=== PATIENT | male | born 1990 | race Caucasian/White ===

== ENCOUNTER 2021-09-10 08:31 | Emergency (ER) | payer SELFPAY ==
[2021-09-10 08:44] VITALS: BP 154/89; PULSE 88; RESP 20; TEMP 36.8; O2SAT 100
--- NOTE | 2021-09-10 09:18 | ED.URI ---
HPI - URI/Sore Throat General Chief Complaint: Upper Respiratory Infection Stated Complaint: Sore Throat Time Seen by Provider: 09/10/21 09:12 Source: patient and RN notes reviewed Mode of arrival: ambulatory Limitations: no limitations History of Present Illness HPI Narrative: Patient presents today complaining of a 2-day history of sore throat and swelling, headache, tenderness to the neck, and fatigue. Currently rates his sore throat 2/10, which increases with swallowing. He has been taking Tylenol with mild relief of the headache. He has had 1 COVID-19 vaccine. Smokes half pack per day. Denies any sick contacts. MD elicited complaint: sore throat Related Data Home Medications Medication Instructions Recorded Confirmed No Home Medications 09/10/21 09/10/21 Allergies Allergy/AdvReac Type Severity Reaction Status Date / Time No Known Allergies Allergy Verified 09/10/21 08:55 Review of Systems Review of Systems: CONSTITUTIONAL: Denies body aches, fever, chills, or sweats.+ Fatigue EYES: Denies visual changes, redness, or discharge. ENT: Denies rhinorrhea, congestion, or otalgia.+ Sore throat CARDIOVASCULAR: Denies chest pain, palpitations, or edema. RESPIRATORY: Denies cough or dyspnea. GASTROINTESTINAL: Denies abdominal pain, nausea, vomiting, or diarrhea. GENITOURINARY: Denies dysuria or hematuria. SKIN: Denies rash, itching, or wounds. MUSCULOSKELETAL: Denies back pain, joint pain, or myalgia. NEUROLOGIC: Denies numbness, tingling, or weakness.+ Headache PSYCH: Denies depression or anxiety. [facility] Social History Social History (Updated 09/10/21 @ 09:20 by Fozia Doss, [facility], ) Smoking packs per day: 0.5 Smoking cigarettes per day: 10.0 Years smoked: 12 Smoking pack-years: 6.00 Smoking status: Current every day smoker Comments At time of signature, I have reviewed and agree with nursing past medical, surgical, social and family history unless otherwise noted. Please see nursing chart for further information. There is no relevant family history pertinent to the presenting complaint Exam Narrative: GENERAL: Well-appearing, well-nourished, and in no acute distress. HEAD: Normocephalic, atraumatic. EYES: EOMI. No redness or drainage. Conjunctivae normal. ENT: Mucous membranes pink and moist. Nares clear. No rhinorrhea. TMs normal bilaterally. Throat mildly erythematous and edematous with white exudate. Tonsils 2+. Uvula midline. NECK: Normal AROM. Supple. Tender bilateral anterior lymphadenopathy. CHEST: No respiratory distress. Clear to auscultation. HEART: Regular rate and rhythm. No murmur appreciated. Normal peripheral pulses. EXTREMITIES: Normal range of motion. No edema. SKIN: Warm, dry, no rash. Capillary refill normal. Normal skin turgor. NEURO: No focal deficits. Alert and oriented x3. Gait steady. PSYCH: Normal affect. No signs of depression or anxiety. Course Vital Signs Vital signs: Vital Signs Temperature 98.2 F 09/10/21 08:44 Pulse Rate 88 09/10/21 08:44 Respiratory Rate 20 09/10/21 08:44 Blood Pressure 154/89 H 09/10/21 08:44 Pulse Oximetry 100 09/10/21 08:44 Temperature 99.0 F 09/10/21 08:56 Pulse Rate 82 09/10/21 08:56 Respiratory Rate 16 09/10/21 08:56 Blood Pressure 129/78 09/10/21 08:56 Pulse Oximetry 100 09/10/21 08:56 Reviewed. Pt has been instructed to follow up with his PCP regarding his elevated blood pressure today. MDM - URI/Sore Throat Differential Diagnosis Differential diagnosis: Likely upper respiratory infection, otitis media, viral infection, pharyngitis and other (Strep throat) Lab Data Attestation: I reviewed the patient's lab results. Labs: Strep Screen Presumptive Negative *(Reference Range: Negative)* Critical Care Time Critical Care Time Critical Care Time: No Discharge Plan Discharge Clinical Impression: Acute viral phary
== END 2021-09-10 09:25 | disposition home or self-care (01) ==
PROVIDERS: Emergency Provider Nurse Practitioner
DX: J02.9 Acute pharyngitis, unspecified (principal); F17.210 Nicotine dependence, cigarettes, uncomplicated
CPT/HCPCS: 87081; 87880; 99213; G0463

== ENCOUNTER 2022-07-08 11:55 | Emergency (ER) | payer OTHER, SELFPAY ==
[2022-07-08 12:00] VITALS: BP 161/85; PULSE 85; RESP 16; TEMP 36.3; O2SAT 100
--- NOTE | 2022-07-08 12:00 | ED.EAR ---
HPI - Ear Problem General Chief complaint: Ear Stated complaint: left ear pain Time Seen by Provider: 07/08/22 12:00 Source: patient and RN notes reviewed History of Present Illness HPI Narrative: Patient is a 31-year-old male who presents the urgent care with complaints of left otalgia since last night. Patient states that he took Tylenol for his ear pain. Denies of any other upper respiratory complaints. Denies of any fever. No other acute complaints. No acute distress noted. Patient read the plan of care. Some parts of this dictation were generated by voice recognition software and may contain typographical and/or grammatical inaccuracies. Related Data Home Medications Medication Instructions Recorded Confirmed No Home Medications 09/10/21 09/10/21 Allergies Allergy/AdvReac Type Severity Reaction Status Date / Time No Known Allergies Allergy Verified 07/08/22 12:07 Review of Systems Review of Systems: CONSTITUTIONAL: Denies fever, chills, or sweats. EYES: Denies visual changes, redness, or discharge. ENT: Denies rhinorrhea, congestion, sore throat. Reports of left otalgia CARDIOVASCULAR: Denies chest pain, palpitations, or edema. RESPIRATORY: Denies cough or dyspnea. GASTROINTESTINAL: Denies abdominal pain, nausea, vomiting, or diarrhea. GENITOURINARY: Denies dysuria or hematuria. SKIN: Denies rash or itching. MUSCULOSKELETAL: Denies back pain, joint pain, or myalgia. NEUROLOGIC: Denies headache, numbness, or weakness. All other systems reviewed are negative, except as documented in HPI. [facility] Social History Social History (Updated 09/10/21 @ 09:20 by Fozia Doss, [facility]) Smoking packs per day: 0.5 Smoking cigarettes per day: 10.0 Years smoked: 12 Smoking pack-years: 6.00 Smoking status: Current every day smoker Exam Narrative: GENERAL: This is a well-nourished, well-developed patient, in no apparent distress. HEAD: normocephalic, atraumatic. EYES: PERRL. Sclera clear/white. Vision is grossly intact. EARS: External ears normal, auditory canals clear and without drainage, mild left effusion without otitis. Right TM normal without perforation. Hearing grossly intact. NOSE: External nose normal with no obvious nasal discharge, nares without redness, no rhinorrhea. THROAT: Mucous membranes moist, posterior pharynx clear. Mild postnasal drainage NECK: Neck supple, non-tender without lymphadenopathy, masses or thyromegaly. CARDIOVASCULAR: Regular rate and rhythm without murmurs, gallops, or rubs. RESPIRATORY: Clear to auscultation. Breath sounds equal bilaterally. No wheezes, rales, or rhonchi. SKIN: warm, intact with no suspicious lesions or rash, good texture and turgor. NEURO: awake, alert, and oriented to person, place and time. There were no obvious focal neurologic abnormalities. EXTREMITIES: No clubbing, cyanosis, or edema. Course Course Level of Care: Express Care Visit Vital Signs Vital signs: Vital Signs Temperature 97.4 F L 07/08/22 12:00 Pulse Rate 85 07/08/22 12:00 Respiratory Rate 16 07/08/22 12:00 Blood Pressure 161/85 H 07/08/22 12:00 Pulse Oximetry 100 07/08/22 12:00 Oxygen Delivery Room Air 07/08/22 12:00 Temperature 97.4 F L 07/08/22 12:00 Pulse Rate 85 07/08/22 12:00 Respiratory Rate 16 07/08/22 12:00 Blood Pressure 161/85 H 07/08/22 12:00 Pulse Oximetry 100 07/08/22 12:00 Oxygen Delivery Room Air 07/08/22 12:00 Reviewed-patient is informed that they may have pre-hypertension or hypertension based on a blood pressure reading in the department. I recommend the patient call the primary care provider listed on their discharge instructions or a physician of their choice this week to arrange follow-up for further evaluation of possible pre-hypertension or hypertension. Medical Decision Making MDM Narrative Medical decision making narrative: Advised patient take a daily antihistamine such as Claritin or Zyrtec. Use [place]
== END 2022-07-08 12:13 | disposition home or self-care (01) ==
PROVIDERS: Emergency Provider Nurse Practitioner Family
DX: H92.02 Otalgia, left ear (principal); F17.210 Nicotine dependence, cigarettes, uncomplicated
CPT/HCPCS: 99211; G0463

== ENCOUNTER 2023-02-10 13:11 | Emergency (ER) | payer OTHER, SELFPAY ==
[2023-02-10 13:16] VITALS: BP 127/88; PULSE 119; RESP 20; TEMP 37.4; O2SAT 98
--- NOTE | 2023-02-10 13:39 | ED.URI ---
HPI - URI/Sore Throat General Chief Complaint: Upper Respiratory Infection Stated Complaint: cold/flu Source: patient and RN notes reviewed History of Present Illness HPI Narrative: 32 yo M presents to urgent care with at side. Pt states he woke up Friday morning feeling like crap. Pt reports fatigue, productive cough, chest pain with coughing, and a VASQUEZ. Pt states he has had a fever, highest being 102 F, yesterday. Pt reports a chest pressure as well and nausea. Denies any vomiting, diarrhea, ear pain, sore throat, or congestion. Pt has taken Tylenol this morning. Related Data Allergies Allergy/AdvReac Type Severity Reaction Status Date / Time No Known Allergies Allergy Verified 02/10/23 13:22 Review of Systems Review of Systems: Pertinent positives and pertinent negatives per HPI. [facility] Social History Social History (Updated 09/10/21 @ 09:20 by Fozia Doss, [facility], ) Smoking packs per day: 0.5 Smoking cigarettes per day: 10.0 Years smoked: 12 Smoking pack-years: 6.00 Smoking status: Current every day smoker Comments At the time of my signature, I reviewed and agree with the nursing past medical, surgical, social, and family history. There is no relevant family history pertinent to the patient complaint. Exam Narrative: GENERAL: This is a well-nourished, well-developed patient, in no apparent distress. HEAD: normocephalic, atraumatic. EYES: Sclera clear/white. Vision is grossly intact. EARS: External ears normal, auditory canals clear and without drainage. Hearing grossly intact. NOSE: External nose normal with no obvious nasal discharge, nares without redness, no rhinorrhea. THROAT: Mucous membranes moist, posterior pharynx clear. NECK: Neck supple, non-tender without lymphadenopathy, masses or thyromegaly. CARDIOVASCULAR: Tachycardia RESPIRATORY: Clear to auscultation. Breath sounds equal bilaterally. No wheezes, rales, or rhonchi. Pt has dry cough with deep inhalation. SKIN: warm, intact with no suspicious lesions or rash, good texture and turgor. NEURO: awake, alert, and oriented to person, place and time. There were no obvious focal neurologic abnormalities. Course Course Level of Care: Express Care Visit Vital Signs Vital signs: Vital Signs Temperature 99.4 F 02/10/23 13:16 Pulse Rate 119 H 05/15/23 13:16 Respiratory Rate 20 02/10/23 13:16 Blood Pressure 127/88 02/10/23 13:16 Pulse Oximetry 98 02/10/23 13:16 Oxygen Delivery Room Air 02/10/23 13:16 Temperature 99.4 F 02/10/23 13:16 Pulse Rate 119 H 02/10/23 13:16 Respiratory Rate 20 02/10/23 13:16 Blood Pressure 127/88 02/10/23 13:16 Pulse Oximetry 98 02/10/23 13:16 Oxygen Delivery Room Air 02/10/23 13:16 reviewed. MDM - URI/Sore Throat MDM Narrative Medical decision making narrative: Viral illness may last between 7-21 days; antibiotics do not cure viral illness and are NOT recommended at this time. Also, recommend symptomatic treatment includes: rest, fluids, and increase humidity of the air at home. Recommend Acetaminophen as directed on the bottle to reduce fever, pain, headache. Please schedule a follow-up visit with your personal physician for further evaluation and treatment within 3-5days. If your symptoms persist, change or worsen significantly before you can contact your personal physician then please, without delay, go to the emergency department for further evaluation. Differential Diagnosis Differential diagnosis: Likely upper respiratory infection, sinusitis and viral infection Critical Care Time Critical Care Time Critical Care Time: No Discharge Plan Discharge Clinical Impression: Viral infection Patient Disposition: Home, Self-Care Condition: Stable Instructions: Viral Syndrome (ED) Additional Instructions: Viral illness may last between 7-21 days; antibiotics do not cure viral illness and are NOT recommended at this time. Also, recommend
== END 2023-02-10 13:46 | disposition home or self-care (01) ==
PROVIDERS: Emergency Provider Nurse Practitioner Family; PCP Nurse Practitioner Family
DX: B34.9 Viral infection, unspecified (principal); F17.210 Nicotine dependence, cigarettes, uncomplicated
CPT/HCPCS: 99213; G0463

== ENCOUNTER 2023-07-17 19:01 | Emergency (ER) | payer OTHER, SELFPAY ==
--- NOTE | ~2023-07-17 | XR_ITS ---
EXAMINATION: XR chest 2V DATE: 07/17/2023 19:31 INDICATION: Cough and congestion, shortness of breath TECHNIQUE: PA and lateral views of the chest are obtained. COMPARISON: None available FINDINGS: The lungs are free of acute opacities. No pleural effusion or pneumothorax. The cardiomedia stinal silhouette is normal. The visualized bones and soft tissues are unremarkable. IMPRESSION: 1. No acute cardiopulmonary abnormality. Reviewed, dictated and finalized at location F.
[2023-07-17 19:15] VITALS: BP 136/80; PULSE 79; RESP 18; TEMP 36.8; O2SAT 99
--- NOTE | 2023-07-17 19:36 | ED.URI ---
HPI - URI/Sore Throat General Chief Complaint: Upper Respiratory Infection Stated Complaint: Sore Throat/Shortness of Breath/Cough Time Seen by Provider: 07/17/23 19:37 Source: patient, RN notes reviewed and old records reviewed Mode of arrival: ambulatory Limitations: no limitations History of Present Illness HPI Narrative: 32 year old male presents to [facility] care with complaints of 2 day history of cough, some mild shortness of breath, feeling dizzy, feeling pressure to chest with cough, feeling nauseated without emesis Patient reports that he has not had any headache or any known fevers. Patient reports that he has history of childhood asthma with no need for inhalers for many years. Patient states that he has not taken anything OTC MD elicited complaint: cough and other (nausea,,dizzy, pressure to chest withcough) Pertinent past history: other (child bonilla asthma) Onset (ago): day(s) (2) Treatments prior to arrival: none Related Data Allergies Allergy/AdvReac Type Severity Reaction Status Date / Time No Known Allergies Allergy Verified 02/10/23 13:22 Review of Systems Review of Systems: CONSTITUTIONAL: Denies malaise, chills, sweats, or fever. EYES: Denies visual changes, redness, or discharge. ENT: Reports some rhinorrhea, congestion,no sinus pain, otalgia or sore throat. hoarseness present CARDIOVASCULAR: pressure to chest with cough, no palpitations, or edema. RESPIRATORY: Reports cough.? Denies dyspnea. GASTROINTESTINAL: Denies abdominal pain, states nausea, no vomiting, diarrhea SKIN: Denies rash or itching. MUSCULOSKELETAL: Denies myalgia. NEUROLOGIC: Denies headache.dizzy All systems reviewed & are unremarkable except as noted in HPI and below PMFSH Past Medical History Medical History (Updated 07/20/23 @ 20:41 by Karolyn Hinojosa NP) Asthma as child Social History Social History (Updated 07/20/23 @ 20:37 by Karolyn Hinojosa NP) Smoking packs per day: 0.5 Smoking cigarettes per day: 10.0 Years smoked: 12 Smoking pack-years: 6.00 Smoking status: Current every day smoker Tobacco type: e-cigarettes/vaping Comments At time of signature, agree with nursing past medical, surgical, social and family history. There is no relevant family history pertinent to the presenting complaint Exam Narrative: GENERAL: Well-appearing, well-nourished, and in no acute distress. HEAD: Normocephalic EYES: PERRLA, conjunctivae clear ENT: Nares clear, turbinates edematous and erythematous, clear discharge. Mucous membranes moist. TM pearly castañeda with dull light reflex bilaterally; no tragal tenderness. Oropharynx erythematous without lesions. Tonsils not enlarged and without exudate, no drooling, positive for hoarseness, no trismus, uvula midline. NECK: Supple. No lymphadenopathy CHEST: Clear to auscultation, breath sounds equal. No wheezing, rhonchi, rales, or stridor. No respiratory distress, speaks in full sentences. SAO2 99% on room air HEART: Regular rate and rhythm. No murmur heard. SKIN: Warm, dry, no rash. NEURO: Alert and oriented x3. PSYCH: Normal mood and affect Course Course Emergency Course: Patient is aware of diagnosis, understands and agrees to treatment plan.? Anticipatory guidance given.? Patient agrees to follow-up as directed and is aware of reasons to seek care at the emergency department. Portions of this record may have been created with voice recognition software Level of Care: Express Care Visit Vital Signs Vital signs: Vital Signs Temperature 36.8 C 07/17/23 19:15 Pulse Rate 79 07/17/23 19:15 Respiratory Rate 18 07/17/23 19:15 Blood Pressure 136/80 07/17/23 19:15 Pulse Oximetry 99 07/17/23 19:15 Oxygen Delivery Room Air 07/17/23 19:15 Temperature 36.8 C 07/17/23 19:15 Pulse Rate 79 07/17/23 19:15 Respiratory Rate 18 07/17/23 19:15 Blood Pressure 136/80 07/17/23 19:15 Pulse Oximetry 99 07/17/23
== END 2023-07-17 20:11 | disposition home or self-care (01) ==
PROVIDERS: Emergency Provider Registered Nurse; PCP Nurse Practitioner Family
DX: J06.9 Acute upper respiratory infection, unspecified (principal); R05.9 Cough, unspecified; Z20.822 Contact with and (suspected) exposure to COVID-19; F17.290 Nicotine dependence, other tobacco product, uncomplicated
CPT/HCPCS: 71046; 87426; 87804; 99213; C9803; G0463

== ENCOUNTER 2023-08-08 18:30 | Emergency (ER) | payer OTHER, SELFPAY ==
[2023-08-08 18:35] VITALS: BP 132/91; PULSE 90; RESP 16; TEMP 36.4; O2SAT 100
--- NOTE | 2023-08-08 19:04 | ED.EAR ---
HPI - Ear Problem General Chief complaint: Ear Stated complaint: Earache Source: patient and RN notes reviewed History of Present Illness HPI Narrative: 32 yo M presents to urgent care with complaints of bilateral ear pain and feeling clogged. Pt states this all started a few days ago and was mostly in his left ear. Pt also reports congestion and diarrhea. Denies any other symptoms. Related Data Allergies Allergy/AdvReac Type Severity Reaction Status Date / Time No Known Allergies Allergy Verified 02/10/23 13:22 Review of Systems Review of Systems: CONSTITUTIONAL: Denies fever, chills, or sweats. EYES: Denies visual changes, redness, or discharge. CARDIOVASCULAR: Denies chest pain, palpitations, or edema. RESPIRATORY: Denies cough or dyspnea. GASTROINTESTINAL: Denies abdominal pain, nausea, vomiting, or diarrhea. GENITOURINARY: Denies dysuria or hematuria. SKIN: Denies rash or itching. MUSCULOSKELETAL: Denies back pain, joint pain, or myalgia. NEUROLOGIC: Denies headache, numbness, or weakness. Pertinent positives per HPI. [facility] Past Medical History Medical History (Updated 08/08/23 @ 19:14 by Priyanka Bocanegra, [facility]) Asthma as child Social History Social History (Updated 07/20/23 @ 20:37 by Karolyn Hinojosa NP) Smoking packs per day: 0.5 Smoking cigarettes per day: 10.0 Years smoked: 12 Smoking pack-years: 6.00 Smoking status: Current every day smoker Tobacco type: e-cigarettes/vaping Comments At the time of my signature, I reviewed and agree with the nursing past medical, surgical, social, and family history. There is no relevant family history pertinent to the patient complaint. Exam Narrative: GENERAL: This is a well-nourished, well-developed patient, in no apparent distress. HEAD: normocephalic, atraumatic. EYES: Sclera clear/white. Vision is grossly intact. EARS: External ears normal, auditory canals clear and without drainage, Bilateral TMs erythremic and bulging without perforation. Hearing grossly intact. NOSE: External nose normal with no obvious nasal discharge, nares without redness, no rhinorrhea. THROAT: Mucous membranes moist, posterior pharynx clear. NECK: Neck supple, non-tender without lymphadenopathy, masses or thyromegaly. CARDIOVASCULAR: Regular rate and rhythm without murmurs, gallops, or rubs. RESPIRATORY: Clear to auscultation. Breath sounds equal bilaterally. No wheezes, rales, or rhonchi. SKIN: warm, intact with no suspicious lesions or rash, good texture and turgor. NEURO: awake, alert, and oriented to person, place and time. There were no obvious focal neurologic abnormalities. Course Course Level of Care: Express Care Visit Vital Signs Vital signs: Vital Signs Temperature 97.5 F L 08/08/23 18:35 Pulse Rate 90 08/08/23 18:35 Respiratory Rate 16 08/08/23 18:35 Blood Pressure 132/91 H 08/08/23 18:35 Pulse Oximetry 100 08/08/23 18:35 Oxygen Delivery Room Air 08/08/23 18:35 Temperature 97.5 F L 08/08/23 18:35 Pulse Rate 90 08/08/23 18:35 Respiratory Rate 16 08/08/23 18:35 Blood Pressure 132/91 H 08/08/23 18:35 Pulse Oximetry 100 08/08/23 18:35 Oxygen Delivery Room Air 08/08/23 18:35 Reviewed Medical Decision Making MDM Narrative Medical decision making narrative: Take antibiotics as directed. May given ibuprofen and/or Tylenol as needed for pain and/or fever. Follow up with primary care provider in 7-10 days to have ear rechecked. Differential Diagnosis Differential Diagnosis: AOM, cerumen impaction, URI Vital Signs Vital Signs: Vital Signs Temperature 97.5 F L 08/08/23 18:35 Pulse Rate 90 08/08/23 18:35 Respiratory Rate 16 08/08/23 18:35 Blood Pressure 132/91 H 08/08/23 18:35 Pulse Oximetry 100 08/08/23 18:35 Oxygen Delivery Room Air 08/08/23 18:35 Temperature 97.5 F L 08/08/23 18:35 Pulse Rate 90 08/08/23 18:35 Respiratory Rate 16 08/08/23 18:35 Blood Press
== END 2023-08-08 19:20 | disposition home or self-care (01) ==
PROVIDERS: Emergency Provider Nurse Practitioner Family; PCP Nurse Practitioner Family
DX: H66.93 Otitis media, unspecified, bilateral (principal); F17.290 Nicotine dependence, other tobacco product, uncomplicated
CPT/HCPCS: 99213; G0463

== ENCOUNTER 2025-06-24 08:26 | Emergency (ER) | payer OTHER, SELFPAY ==
[2025-06-24 08:29] VITALS: BP 159/92; PULSE 82; RESP 16; TEMP 36.3; O2SAT 100
--- NOTE | 2025-06-24 08:29 | ED_ITS ---
HPI - URI/Sore Throat General Chief Complaint: Upper Respiratory Infection Stated Complaint: sore throat/no voice Time Seen by Provider: 06/24/25 08:35 Source: patient Mode of arrival: ambulatory Limitations: no limitations History of Present Illness HPI Narrative: Jeff is a 34-year-old male patient presenting to the clinic today with complaints of sore throat/no voice x3 days. He reports no known fevers or ch ills but does report some body aches. States he has lost his voice. Has had a dry cough. Has noticed some nasal drainage. Denies any shortness of breath or chest pain. Has been taking Tylenol and ibuprofen for his pain. Rates his pain currently a 04/07. Related Data Allergies Allergy/AdvReac Type Severity Reaction Status Date / Time No Known Allergies Allergy Verified 06/24/25 08:37 Review of Systems Review of Systems: Pertinent positives per HPI. Patient denies any fever, chills, rash, headache, visual changes, dizziness, cough, shortness of breath, chest pain, palpitations, nausea, vomiting, diarrhea, constipation, abdominal pain, or any urinary issues. [facility] Past Medical History Medical History Asthma as child Social History Social History Smoking packs per day: 0.5 Smoking cigarettes per day: 10.0 Years smoked: 12 Smoking pack-years: 6.00 Smoking status: Current every day smoker Tobacco type: e-cigarettes/vaping Comments At the time of my signature, I reviewed and agree with the nursing past medical, surgical, social, and family history. There is no relevant family history pertinent to the patient complaint. Exam Narrative: General: Well-developed, well nourished, in no apparent distress Head: Normocephalic, atraumatic Eyes: Pupils equally round and reactive to light bilaterally, EOM intact, sclera and conjunctive clear, no discharge, lids normal Ears: TMs intact and congested, ear canals clear, no drainage, grossly hearing normal. Nose: Nares patent, clear nasal discharge, mild inflammation, no sinus tenderness. Mouth: Oral pharynx red with mild enlargement tonsils without lesions or masses, good dentition, MMM. Postnasal Neck: Supple, trachea midline, no enlargement of anterior or posterior cervical nodes, no thyroid masses or goiter palpable. Cardio: Regular rate and rhythm, s1 and s2 normal, no murmur appreciated. Resp: Clear to auscultation bilaterally, no rhonchi, rales, wheezing or rubs Course Course Emergency Course: Portions of this record may have been created with voice recognition software. Level of Care: Express Care Visit Vital Signs Vital signs: Vital Signs Temperature 36.3 C L 06/24/25 08:29 Pulse Rate 82 06/24/25 08:29 Respiratory Rate 16 06/24/25 08:29 Blood Pressure 159/92 H 06/24/25 08:29 Pulse Oximetry 100 06/24/25 08:29 Oxygen Delivery Room Air 06/24/25 08:29 Temperature 36.3 C L 06/24/25 08:29 Pulse Rate 82 06/24/25 08:29 Respiratory Rate 16 06/24/25 08:29 Blood Pressure 159/92 H 06/24/25 08:29 Pulse Oximetry 100 06/24/25 08:29 Oxygen Delivery Room Air 06/24/25 08:29 Vital signs reviewed MDM - URI/Sore Throat MDM Narrative Medical decision making narrative: At the time of visit patient is resting comfortably on the exam table. Patient appears to be nontoxic. complaints of sore throat/no voice x3 days. He reports no known fevers or chills but does report some body aches. States he has lost his voice. Has had a dry cough. Has noticed some nasal drainage. Denies any shortness of breath or chest pain. Has been taking Tylenol and ibuprofen for his pain. Rates his pain currently a 7/10. On exam patient has clear nasal drainage, bilateral TMs intact and congested, oropharynx red with postnasal drip, lung sounds are clear, and heart rates regular rate and rhythm. Strep test was ordered. Labs: Strep test was performed and was negative in the clinic today. We will send strep for culture. Plan: I suspect patient has URI/pharyngitis. We will send strep for culture. Work note was given. Supportive measures were discussed with the patient and they voiced understanding discharge instructions and agrees to treatment plan. Return precautions reviewed Differential Diagnosis Differential diagnosis: Likely upper respiratory infection, otitis media, sinusitis, viral infection, bronchitis, influenza, pharyngitis and other (COVID) Lab Data Labs: Lab Results 06/24/25 Range/Units 08:45 POC Grp A Strep Screen Negative (Negative) Discharge Plan Discharge Clinical Impression: Upper respiratory infection Qualifiers: URI type: unspecified URI Qualified Code(s): J06.9 - Acute upper respiratory infection, unspecified Pharyngitis Qualifiers: Pharyngitis/tonsillitis etiology: unspecified etiology Qualified Code(s): J02.9 - Acute pharyngitis, unspecified Patient Disposition: Home Condition: Stable Instructions: Antibiotic Form, Pharyngitis (ED), Cold Symptoms (ED) Additional Instructions: Strep test was negative in the clinic today. We will send strep for culture if this comes back positive we will contact him place you on antibiotics at that time. May take DayQuil/NyQuil for cold/flu symptoms Increase fluids and stay well hydrated May take Tylenol or motrin as directed on bottle for pain/fever May use Flonase 1 spray in each nare daily May take OTC antihistamines such as Zyrtec or Claritin daily as directed on bottle May apply Vicks vapor rub to chest to open sinuses Sinus rinses for congestion Cepacol spray, cough drops, throat lozenges, warm tea with honey/lemon, gargle salt water to soothe throat BRAT diet for diarrhea Clear liquids x 24 hours then advance as tolerated for nausea/vomiting Go to the ED if you develop a worsening in your condition- high fever not controlled by Tylenol or Motrin, dehydration, weakness, lethargy, shortness of breath, or chest pain. Follow up with your PCP in 3-5 days if symptoms persist. Patient Language: Slovenian Prescriptions: No Action amoxicillin 500 mg capsule 500 mg PO Q12H Qty: 20 0RF Follow-up/Referrals: Luke,ANDREEA Caruso [Primary Care Provider, Unknown] Stand Alone Forms: Work/School Release IP Time of Disposition: 08:50 Quality NIHSS Nursing Documentation ED NIHSS nursing documentation: reviewed/agree
--- OUTSIDE RECORDS SUMMARY | 2025-06-24 08:30 | XMS_ITS | Clinical Summary ---
Author Organization [facility] Address [address] [place] [address] Phone Care Team Providers Care Bleach Boiler Puller Name Role Phone Luke Zuly Serenity PAC Primary Care Pro vider Allergies No known active allergies Medications albuterol (ProAir HFA) 108 (90 Base) MCG/ACT Aerosol SolutionIndicat ions:Cough,Bron chitis take 2 Puffs by inhalation every 4 hours as needed for Wheezing or Cough. 1 Inhaler 0 Active amLODIPine (NORVASC) 5 MG Tablet Take 1 Tablet by mouth daily. 90 Tablet 4 Active amitriptyline (ELAVIL) 25 MG Tablet Take 1 Tablet by mouth nightly. 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 (07/02/2024): CARDIO following Encounter for examination of blood pressure with abnormal findings 03/31/2024 Nonintractable headache 03/31/2024 Overview (03/31/2024): DR Foy follows Immunizations Immunization Administration Dates Next Due Adenovirus Vaccine 12/24/2013 Anthrax Vaccine 06/06/2017, 7,01/03/2017, 017 Hepatitis A And Hepatitis B Vaccine 07/06/2014,0 01/28/2014,12/24/2013 Inactivated Polio Vaccine 12/24/2013 KISWAHILI ENCEPHALITIS IM 11/11/2016,10/04/2016 Meningococcal Vaccine 12/24/2013 Smallpox Vaccine 11/11/2016 TDAP Vaccine 12/09/2022,12/24/2013 Typhoid, ViCPs 10/04/2016 Family History Medical History Relation Name Comments Diabetes Father Hypertension Father No Known Problems Mother Diabetes Paternal Grandfather Hypertension Paternal Grandfather Relation Name Status Comments Father Alive Mother Alive Paternal Grandfather Paternal Grandmother Social History Tobacco Use Types Packs/Day Years Used Date Smoking Tobacco: Former Smokeless Tobacco: Never Tobacco Cessation:Counseling Given: No Alcohol Use Standard Drinks/Week Comments Never 0 (1 standard drink = 0.6 oz pur e alcohol) [facility] Utilities Answer Date Recorded In the past 12 months has th e electric, gas, oil, or water company threatened to shut off services in your home? No 07/02/2024 Social Connection and Isolation Panel Answer Date Recorded In a typical week, how many times do you talk on the phone with family, friends, or neighbors? More than three times a week 07/02/2024 How often do you get togethe r with friends or relatives? Never 07/02/2024 How often do you attend [facility] or anabaptist services? Never 07/02/2024 Do you belong to any clubs o r organizations such as christian groups, unions, fraternal or athletic groups, or school groups? No 07/02/2024 How often do you attend meet ings of the clubs or organizations you belong to? Never 07/02/2024 Are you , , di vorced, , never , or living with a partner? 07/02/2024 AUDIT-C Answer Date Recorded Q1: How often do you have a drink containing alcohol? Never 07/02/2024 Q2: How many drinks containi ng alcohol do you have on a typical day when you are drinking? Patient does not drink Q3: How often do you have si x or more drinks on one occasion? Never 07/02/2024 Overall Financial Resource Strain (CARDIA) Answe r Date Recorded How hard is it for you to pa y for the very basics like food, housing, medical care, and heating? Not very hard 07/02/2024 [facility] of Occupat [facility] - Occupational Stress Questionnaire Answer Date Recorded Do you feel stress - tense, restless, nervous, or anxious, or unable to sleep at night because your mind is troubled all the time - these days? Rather much 07/02/2024 Exercise Vital Sign Answer Date Recorde d On average, how many days pe r week do you engage in moderate to strenuous exercise (like a brisk walk)? 5 days 07/02/2024 On average, how many minutes do you engage in exercise at this level? 60 min 07/02/2024 Hunger Vital Sign Answer Date Recorded Within the past 12 months, y ou worried that your food would run out before you got the money to buy more. Never true 07/02/20 24 Within the past 12 months, t he food you bought just didn't last and you didn't have money to get more. Never true 07/02/2024 PRAPARE - Transportation Answer Date Re corded In the past 12 months, has l ack of transportation kept you from medical appointments or from getting medications? No 12/2023 In the past 12 months, has l ack of transportation kept you from meetings, work, or from getting things needed for daily living? No 07/02/2024 Housing Stability Vital Sign Answer Alexi e Recorded In the last 12 months, was t here a time when you were not able to pay the mortgage or rent on time? No 07/02/2024 In the past 12 months, how m any times have you moved where you were living? 0 07/02/2024 At [facility] time [facility] the [facility] were you homeless or living in a correction (including now)? No 07/02/2024 Sexually Active Control Partners Comments Yes Female Sex and Gender Information Value Date Recorded Sex Assigned at Not on file Legal Sex Male 7:33 PM CDT Gender Identity Not on file Sexual Orientation Not on file Last Filed Vital Signs Vital Sign Reading Time Taken Comments Blood Pressure 128/102 07/02/2024 3:42 PM CDT Pulse 113 07/02/2024 3:42 PM CDT Temperature 36.5 C (97.7 F) 07/02/2024 3:42 PM CDT Respiratory Rate 12 07/02/2024 3:42 PM CDT Oxygen Saturation 97% 07/02/2024 3:42 PM CDT Inhaled Oxygen Concentration - - Weight 103 kg (227 lb) 07/02/2024 3:42 PM CDT Height 180.3 cm (5' 11) 06/17/2024 3:00 PM CDT Body Mass Index 31.66 06/17/2024 3:00 PM CDT Plan of Treatment Health Maintenance Due Date Last Done Comments Hepatitis C Virus (HCV) Screening 1990 Human Papillomavirus (HPV) Immunization (1 - 3-dose SCDM series) 2017 Influenza Immunization (#1) 2025 SARS-COV-2 Immunization (2024- season) 2025 07/15/2021 Respiratory Syncytial Virus (RSV) Immunization (Adult) (1 - 1-dose 75+ series) 2065 Meningococcal Immunization (ACWY) Aged Out 12/24/2013 No longer eligible based on patient's age to complete this topic Hepatitis B Immunization Completed 014, 01/28/2014, 12/24/2013 DTaP/Tdap/Td Immunization Discontinued 2022, 12/24/2013 TdaP Immunization Discontinued 12/09/2022, 12/24/2013 Pneumococcal Immunization Combined Aged Out No longer eligible based on patient's age to complete this topic Rotavirus Immunization Aged Out No lo nger eligible based on patient's age to complete this topic Insurance [facility] Care Teams Bleach Boiler Puller Relationship Specialty Start Date End Date Zuly Butler PAC PCP - General Physician Accountant Property 03/31/24
--- OUTSIDE RECORDS SUMMARY | 2025-06-24 08:30 | XMS_ITS | Clinical Summary ---
Author Organization [facility] Address [address] [place] [address] Care Team Providers Care Cloth Cutting Inspector Name Role Phone RamseyKameronVeronicafrannie Knott NP Primary Care Provider [phone] Kira Norman PT Unavailable Unavailabl e Allergies No known active allergies Medications benzonatate (TESSALON) 100 mg capsuleIndications :Cough Take 1 capsule (100 mg total) by mouth every 8 (eight) hours 21 capsule 06/11/20 20 Active Additional Information Patient not taking.Reported on 10/02/2022 albuterol HFA (PROVENTIL HFA,VENTOLIN HFA,PROAIR HFA) 90 mcg/actuation inhaler Inhale 2 puffs every 4 (four) hours as needed 05/15/20 20 Active amitriptyline (ELAVIL) 25 mg tablet Take one tablet po qhs for one week, then two tablets po qhs 60 tablet 3 11/14/19 23 Active Additional Information Patient not taking.Reported on 04/30/2023 azithromycin (ZITHROMAX) 250 mg tablet Take 2 tablets the first day, then 1 tablet daily for 4 days 6 tablet 02/14/20 23 Active Additional Information Patient not taking.Reported on 04/30/2023 diazePAM (VALIUM) 5 mg tabletIndications: anxiety Take 1 tablet (5 mg total) by mouth every 8 (eight) hours as needed for anxiety 15 tablet 04/25/20 23 Active rizatriptan LAB ENGINEER (MAXALT-LAB ENGINEER) 5 mg disintegrating tabletIndications: Migraine Take 1 tablet (5 mg total) by mouth once as needed for migraine May repeat in 2 hours if unresolved. Do not exceed 30 mg in 24 hours. 9 tablet 04/25/20 23 Active ketorolac (TORADOL) 10 mg tablet Take 1 tablet (10 mg total) by mouth Active predniSONE (DELTASONE) 20 mg tablet Take 1 tablet (20 mg) by mouth 02/11/20 Active topiramate (TOPAMAX) 50 mg tablet Take half tablet (25 mg) po twice a day for one week, then one tablet po twice a day 60 tablet 3 04/30/20 23 Active Active Problems Problem Noted Date Diagnosed Date Soft tissue mass 11/14/2022 Memory loss 10/02/2022 Dizziness and giddiness 10/02/2022 Occipital neuralgia of left side 10/02/2022 Surgical History Surgery Date Site/Laterality Comments FL FLUORO GUIDED LUMBAR PUNCTURE 10/25/2022 Right Family History Medical History Relation Name Comments Diabetes Father Hypertension Father Stroke Father Relation Name Status Comments Father Social History Tobacco Use Types Packs/Day Years Used Date Smoking Tobacco: Former Cigarettes Smokeless Tobacco: Current Tobacco Cessation:Ready to Q uit: Not Asked; Counseling Given: Not Answered Personal Safety Answer Date Recorded Getting School Help Needed Not on file 04/29 Sex and Gender Information Value Date Recorded Sex Assigned at Not on file Legal Sex Male 7:03 PM ENERGY CONSERVATION SPECIALIST Gender Identity Not on file Sexual Orientation Not on file Obstetrics History Last Filed Vital Signs Vital Sign Reading Time Taken Comments Blood Pressure 139/86 04/30/2023 3:08 PM CDT Pulse 103 04/30/2023 3:08 PM CDT Temperature 36.7 C (98.1 F) 04/24/2023 9:14 PM CDT Respiratory Rate 18 04/30/2023 3:08 PM CDT Oxygen Saturation 97% 04/30/2023 3:08 PM CDT Inhaled Oxygen Concentration - - Weight 101.2 kg (223 lb 3.2 oz) 04/24/2023 9:14 PM CDT Height 180.3 cm (5' 10.98) 04/30/2023 3:08 PM C DT Body Mass Index 31.13 02/13/2023 5:20 PM CDT Plan of Treatment Health Maintenance Due Date Last Done Comments Depression Screening 1990 Hepatitis C Screening 1990 DTaP/Tdap/Td Vaccine (1 - Tdap) 2001 Varicella Vaccines (1 of 2 - 13+ 2-dose series) 12/18/2003 Hepatitis B Screening 2008 Regular Well Visit/Exam 18-64 2008 HPV Vaccines (1 - 3-dose SCD M series) 2017 Covid-19 Vaccine (2024-2 6 season) 2025 07/15/2021 Influenza Vaccine (#1) 2025 , 09/03/2020 Pneumococcal vaccine <65 Aged Out No longer eligible based on patient's age to complete this topic Insurance [employer] GENERIC Advance Directives For more information, please contact: [phone] * Full Code (Latest Code Status on File) Date Activated Date Inactivated Comments 10/25/2022 10:03 AM 10/26/2022 4:56 AM Care Teams Cloth Cutting Inspector Relationship Specialty Start Date End Date Veronica Mustafa NP [address] [place] [address] PCP - General Nurse Practitioner 10/01/22 Kira Norman, PT Physical Therapist Physical Therapy 12/05/22
--- OUTSIDE RECORDS SUMMARY | 2025-06-24 08:30 | XMS_ITS | Clinical Summary ---
Author Organization [facility] Address [address] [place] [address] Care Team Providers Care Tourist Home Keeper Name Role Phone Mustafa, Veronicafrannie ODONNELL-UTILITY BAGGER Primary Care Provider [phone] Source Comments [facility],non-owned Affiliates and Associated Physician Practices is amultiple site organization consisting of ambulatory clinics and hospital sitesin [place], [place], [place] and [place]. This disclosure is being madepursuant to the Care Everywhere program and may not contain all information available regarding this patient. Last updated 18.[facility] Allergies No known active allergies Medications * Be aware that medications may not be up to date on this document. Alwaysverify current medications with the patient. lidocaine 1 % 9 mL, sodium bicarbonate 8.4 % 1 mL 3 mL by Infiltration route intra-OP multiple. 1 Each 0 2 Active DULoxetine (CYMBALTA) 30 MG capsule Take 1 Cap by mouth 2 times daily. 180 Cap 3 2 Active meloxicam (MOBIC) 15 MG tablet Take 1 Tab by mouth once daily. 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 Social History Tobacco Use Types Packs/Day Years Used Date Smoking Tobacco: Never Assessed Sex and Gender Information Value Date Recorded Sex Assigned at Not on file Legal Sex Male 11:37 AM HIDE INSPECTOR AND SORTER Gender Identity Not on file Sexual Orientation Not on file Last Filed Vital Signs Vital Sign Reading Time Taken Comments Blood Pressure - - Pulse - - Temperature - - Respiratory Rate - - Oxygen Saturation - - Inhaled Oxygen Concentration - - Weight 81.6 kg (180 lb) 02/03/2012 9:55 AM CDT Height 182.9 cm (6') 02/03/2012 9:55 AM CDT Body Mass Index 24.41 02/03/2012 9:55 AM CDT Plan of Treatment Health Maintenance Due Date Last Done Comments HIV SCREENING 2005 HEPATITIS C SCREENING 12/12/2008 DTAP/TDAP/TD VACCINES (1 - Tdap) 2009 HEPATITIS B VACCINE (1 of 3 - 19+ 3-dose series) 2009 HPV VACCINE (1 - 3-dose SCDM series) 2017 DEPRESSION SCREENING 09/29/2024 COVID-19 VACCINE ( season) 2025 INFLUENZA VACCINE (#1) 2025 7, 08/30/2016, 08/04/2015, Additional history exists ZOSTER VACCINE (1 of 2) 2040 HIB VACCINE Aged Out No longer eligi ble based on patient's age to complete this topic MENINGOCOCCAL (Group B) VACCINE SHARED DECISION-MAKING Aged Out No longer eligible based on patient's age to complete this topic MENINGOCOCCAL GROUPS A/C/Y/W VACCINE Aged Out No longer eligible based on patient's age to complete this topic PNEUMOCOCCAL VACCINE Aged Out No long er eligible based on patient's age to complete this topic Insurance [facility] Care Teams Tourist Home Keeper Relationship Specialty Start Date End Date Veronica Mustafa APRN-UTILITY BAGGER [address] [place] [address] PCP - General Nurse Practitioner Family 11/25/22
[2025-06-24 08:47] LABS: EDSTREPNEGPOS1 Negative (Negative)
== END 2025-06-24 09:07 | disposition home or self-care (01) ==
PROVIDERS: Emergency Provider Nurse Practitioner Family; PCP Physician Assistant
DX: J06.9 Acute upper respiratory infection, unspecified (principal); J02.9 Acute pharyngitis, unspecified; F17.210 Nicotine dependence, cigarettes, uncomplicated; F17.290 Nicotine dependence, other tobacco product, uncomplicated
CPT/HCPCS: 87081; 87880; 99213; G0463